=== PATIENT | female | born 1980 | race African-American/Black ===

== ENCOUNTER → 2017-06-30 11:30 | Observation (INO) ==
[2017-06-30 10:20] LABS: Bilirubin,Urine Negative (Negative); Blood,Urine Negative (Negative); Color,Urine Yellow (Yellow); Glucose,Urine (UA) Normal (Normal); Ketones,Urine Negative (Negative); Leukocyte Esterase,Urine Negative (Negative); Nitrite,Urine Negative (Negative); Protein,Urine Negative (Neg-Trace); Specific Gravity,Urine 1.018 (1.010-1.025); Urobilinogen,Urine Normal (Normal)
[2017-06-30 10:23] LABS: Clarity,Urine Clear (Clear)
--- NOTE | 2017-06-30 10:28 | OB/GYN Progress Note ---
Date of Encounter: 06/30/17 Time of Encounter: 10:24 - Assessment and Plan (1) 27 weeks gestation of Current Visit: Yes Status: Acute admitted for observation (2) Placenta previa antepartum in second trimester Current Visit: Yes Status: Acute no SVE (3) Nausea Current Visit: Yes Status: Acute Zofran ODT (4) with abdominal cramping of lower quadrant, antepartum Current Visit: Yes Status: Acute UA labor evaluation Subjective - Subjective Principal diagnosis: nausea, cramping, spotting Interval history: Patient is 37 y/o at 27w0d presents to labor and delivery with complaints of nausea that started yesterday along with cramping in lower abdomen. Patient reports when she wiped she also had bright red spotting but nothing since. Patient reports she called office yesterday with symptoms of yeast infection and requested a RX. Patient states she did not receive the RX yet. Patient denies dysuria or urinary frequency. Patient reports +FM. Patient reports is complicated by placenta previa. Patient is scheduled for repeat ultrasound in two days to check location. Antepartum ROS: movement normal, no loss of fluid Objective - Exam FHR: auscultation normal FHR comments: 140 bpm moderate variability appropriate for gestational age. Uterine irritability noted. Abdomen: Present: normal appearance, soft, gravid Cervical dilation: appears to be closed Comments: Speculum exam: NO bleeding noted. Moderate amount of thick white discharge. Cervix appears to be closed. Vaginosis panel collected.
[2017-06-30 10:40] LABS: Amphetamine Screen,Urine Negative ng/mL (Cutoff=1000); Barbiturate Screen,Urine Negative ng/mL (Cutoff=200); Benzodiazepines Screen,Urine Negative ng/mL (Cutoff=200); Cannabinoid Screen,Urine Negative ng/mL (Cutoff = 50); Cocaine Screen,Urine Negative ng/mL (Cutoff= 300); Opiate Screen,Urine Negative ng/mL (Cutoff=300); Phencyclidine Screen,Urine Negative ng/mL (Cutoff=25)
--- NOTE | 2017-06-30 11:16 | Event Note ---
Date of Encounter: 06/30/17 Time of Encounter: 11:10 Discussed contractions and exam of patient with Dr. Amato. Dr. Amato would like Terbutaline .25mg SQ x1 and then patient to be discharge to go to OB office for ultrasound to check location of placenta. Discussed POC with patient. Patient denies any questions or concerns.
[2017-06-30 11:23] LABS: Candida DNA Not Detected (Not Detect); Gardnerella DNA Not Detected (Not Detect); Trichomonas DNA Not Detected (Not Detect)
[~2017-06-30 11:30] MED LIST: Ondansetron ODT 4 MG TAB.RAPDIS SL ONE; Terbutaline 1 MG/ML VIAL SQ ONE
== END | disposition home or self-care (01) ==
LOC: 1NENULAB
PROVIDERS: ADMIT Obstetrics & Gynecology; ATTEND Obstetrics & Gynecology

== ENCOUNTER → 2017-06-30 13:44 | Observation (INO) ==
--- NOTE | 2017-06-30 13:29 | Discharge Summary ---
Date of Encounter: 06/30/17 Time of Encounter: 13:27 - Discharge Diagnosis (1) contractions Priority: Primary Status: Acute Comments: admitted for observation for contractions following terbutaline (2) 27 weeks gestation of Priority: Secondary Status: Acute Comments: observation - Discharge Medications Home Medications: Ibuprofen [Motrin] 800 mg PO Q8HR #30 tablet 10/25/15 [Rx] Ondansetron HCl [Zofran] 4 mg PO 2-3XD PRN #14 tablet 10/25/15 [Rx] Promethazine [Phenergan] 25 mg PO Q6HR PRN #12 tablet 11/01/15 [Rx] Iron 06/30/17 [History] One Tablet 06/30/17 [History] Allergies/Adverse Reactions: 3 Allergy/AdvReac Type Severity Reaction Status Date / Time nalbuphine [From Nubain] Allergy Confusion Verified 11/01/15 13:35 Penicillins Allergy Hives Verified 11/01/15 13:35 Date of admission: 06/30/17 12:07 Primary care physician: Jody Estrada Discharging clinician: Analy Butcher Anticipated date of discharge: 06/30/17 - Patient Status Disposition: Home, Self-Care Condition: Good Functional capacity at discharge: independent ambulation - Discharge Instructions Follow Up With: Jody Estrada MD [Primary Care Provider] - Joycelyn Amato MD [Partnered Physician] - - Diet and Activity Activity: increase activity as tolerated Diet: regular diet 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 Patient had an ultrasound in office to check placental location. Placenta was found to be low lying but no longer a previa. Patient scheduled to follow up if office with Dr. Amato on Wednesday. FHR 140 bpm moderate variability appropriate for gestational age. No contractions noted. Patient reports feeling no pain or contractions at this time. Patient is comfortable with POC. Time Attestation: Total time spent providing and/or coordinating discharge services: Time Spent: Less than 30 minutes Exam - Constitutional General appearance IM: A&O X 3, pleasant, answers questions appropriately - Respiratory Respiratory exam: Present: CTAB - Cardiovascular Cardiovascular exam IM: Present: RRR, +S1, +S2 - Extremities Exam Extremities exam IM: Present: full ROM, normal capillary refill - Neurological Exam Neurological exam: alert, oriented X3, reflexes normal - VTE Reasons for not Prescribing Prophylaxis: Treatment not Indicated - Low risk for VTE
== END | disposition home or self-care (01) ==
LOC: 1NENULAB
PROVIDERS: ADMIT Obstetrics & Gynecology; ATTEND Obstetrics & Gynecology

== ENCOUNTER → 2017-08-20 10:44 | Observation (INO) ==
[2017-08-20 09:50] LABS: Basophils % 0.2 %; Eosinophils # 0.2 K/mcL (0.0-0.6); Hematocrit 32.8 % (35.3-44.9); Hemoglobin 11.3 g/dL (11.5-15.4); Immature Granulocytes % 1.1 % (0-4); Lymphocytes # 1.3 K/mcL (0.6-4.6); Lymphocytes % 23.5 %; Mean Corpuscular HGB Conc 34.5 g/dL (31.6-35.5); Mean Corpuscular Hemoglobin 29.4 pg (28.0-33.3); Mean Corpuscular Volume 85.4 fL (83.0-100.0); Mean Platelet Volume 10.1 fL (9.4-12.4); Monocytes # 0.3 K/mcL (0.0-1.3); Monocytes % 5.7 %; Neutrophils # 3.7 K/mcL (1.6-8.9); Platelet Count 208 K/mcL (140-400); Red Blood Count 3.84 M/mcL (3.82-4.97); Red Cell Distribution Width 12.8 % (11.5-14.5); Segmented Neutrophils % 66.5 %
[2017-08-20 10:12] LABS: Amphetamine Screen,Urine Negative ng/mL (Cutoff=1000); Barbiturate Screen,Urine Negative ng/mL (Cutoff=200); Benzodiazepines Screen,Urine Negative ng/mL (Cutoff=200); Cannabinoid Screen,Urine Negative ng/mL (Cutoff = 50); Cocaine Screen,Urine Negative ng/mL (Cutoff= 300); Creatinine,Urine 57 mg/dL; Opiate Screen,Urine Negative ng/mL (Cutoff=300); Protein/Creatinine Ratio,Urine 0.19 mg/mg (0.00-0.20)
[2017-08-20 10:13] LABS: Alanine Aminotransferase 7 Units/L (7-52); Aspartate Amino Transferase 9 Units/L (13-39); BUN/Creatinine Ratio 16 (6-26); Blood Urea Nitrogen 7 mg/dL (6-20); Lactate Dehydrogenase 144 Units/L (140-271); Uric Acid 2.3 mg/dL (2.3-7.6); eGFR For African Americans > 60 (> 60); eGFR For Non-African Americans > 60 (> 60)
--- NOTE | 2017-08-20 10:36 | OB/GYN Progress Note ---
Date of Encounter: 08/20/17 Time of Encounter: 10:34 - Assessment and Plan (1) 34 weeks gestation of Current Visit: Yes Status: Acute (2) Elevated blood pressure affecting in third trimester, antepartum Current Visit: Yes Status: Acute BP normal. PIH labs normal including UPCR. Discharge home with strict return precautions. Follow-up with Dr. Amato for BP check next week. (3) Abnormal drug screen Current Visit: Yes Status: Acute Pt reports taking diclegis and benadryl with most recent use yesterday for allergy sx. She denies using PCP. I suspect that this was a false positive result. Subjective - Subjective Interval history: 37 year-old presenting to triage from office for PIH evaluation at 34 weeks. She reports intermittent BRYAN for the last week or so with some visual floaters but not blurry vision. She denies anything new today. Good FM. No LOF, vaginal bleeding, or contractions. Antepartum ROS: movement normal, no loss of fluid, no vaginal bleeding, no contractions Objective - Vital Signs Vital Signs: Intake and Output 08/19/17 08/20/17 08/20/17 23:59 07:59 15:59 Other: Weight 93.1 kg Patient Weight 08/20/17 23:59 Weight 93.1 kg - Exam FHR: category 1 FHR comments: 150 BPM, reactive NST Auscultation: bilateral: normal Abdomen: Present: soft, gravid Uterus: Absent: tenderness Comments: normal reflexes, no clonus - Labs Labs: Abnormal lab results Hgb 11.3 g/dL (11.5-15.4) L 08/20/17 08:57 Hct 32.8 % (35.3-44.9) L 08/20/17 08:57 Creatinine 0.43 mg/dL (0.60-1.20) L 08/20/17 08:57 Glucose 1 Hr 50 gm 190 mg/dL (70-139) H 08/20/17 09:32 AST 9 Units/L (13-39) L 08/20/17 08:57 Ur Phencyclidine Scrn Positive ng/mL (Cutoff=25) H 08/20/17 09:25
[2017-08-25 18:41] LABS: Phencyclidine Screen,Urine Negative ng/mL (Cutoff=25)
== END | disposition home or self-care (01) ==
LOC: 1NENULAB
PROVIDERS: ADMIT Obstetrics & Gynecology; ATTEND Obstetrics & Gynecology

== ENCOUNTER → 2017-09-07 11:14 | Observation (INO) ==
[2017-09-07 09:59] LABS: Basophils % 0.2 %; Eosinophils # 0.1 K/mcL (0.0-0.6); Eosinophils % 1.6 %; Hematocrit 33.9 % (35.3-44.9); Hemoglobin 11.5 g/dL (11.5-15.4); Immature Granulocytes % 1.4 % (0-4); Lymphocytes # 1.4 K/mcL (0.6-4.6); Lymphocytes % 25.1 %; Mean Corpuscular HGB Conc 33.9 g/dL (31.6-35.5); Mean Corpuscular Volume 85.6 fL (83.0-100.0); Monocytes # 0.5 K/mcL (0.0-1.3); Monocytes % 8.3 %; Neutrophils # 3.5 K/mcL (1.6-8.9); Platelet Count 212 K/mcL (140-400); Red Blood Count 3.96 M/mcL (3.82-4.97); Red Cell Distribution Width 13.1 % (11.5-14.5); Segmented Neutrophils % 63.4 %
[2017-09-07 10:15] LABS: Alanine Aminotransferase 8 Units/L (7-52); Aspartate Amino Transferase 12 Units/L (13-39); BUN/Creatinine Ratio 12 (6-26); Blood Urea Nitrogen 5 mg/dL (6-20); Lactate Dehydrogenase 157 Units/L (140-271); Uric Acid 2.6 mg/dL (2.3-7.6); eGFR For African Americans > 60 (> 60); eGFR For Non-African Americans > 60 (> 60)
[2017-09-07 10:23] LABS: Creatinine,Urine 74 mg/dL; Protein/Creatinine Ratio,Urine 0.16 mg/mg (0.00-0.20)
--- NOTE | 2017-09-07 10:25 | OB/GYN Progress Note ---
Date of Encounter: 09/07/17 Time of Encounter: 10:22 - Assessment and Plan (1) 36 weeks gestation of Current Visit: Yes Status: Acute admitted for observation (2) NST (non-stress test) reactive on surveillance Current Visit: Yes Status: Acute baseline 130 bpm moderate variability +15x15 accels no decels noted. (3) Elevated blood pressure affecting in third trimester, antepartum Current Visit: No Status: Acute BPs WNL PIH labs WNL Protein creat ration pending Subjective - Subjective Principal diagnosis: Elevated BP in Third trimester Interval history: Patient is a 37 y/o at 36w6d presents to labor and delivery from OB office due to elevated BP. Patient denies headache, visual disturbances or epigastric pain. Patient reports +FM, denies LOF or VB. Antepartum ROS: movement normal, no loss of fluid, no vaginal bleeding, no contractions Objective - Vital Signs Vital Signs: Intake and Output 09/06/17 09/07/17 09/07/17 23:59 07:59 15:59 Other: Weight 94.3 kg Patient Weight 09/07/17 23:59 Weight 94.3 kg - Exam FHR: auscultation normal, category 1 FHR comments: 130 bpm moderate variability +15x15 accels no decels noted. Irregular contractions noted. Cat. 1 tracing Auscultation: bilateral: normal Abdomen: Present: normal appearance, soft, gravid Uterus: Present: normal - Labs Labs: Abnormal lab results Hct 33.9 % (35.3-44.9) L 09/07/17 08:54 BUN 5 mg/dL (6-20) L 09/07/17 09:30 Creatinine 0.43 mg/dL (0.60-1.20) L 09/07/17 09:30 AST 12 Units/L (13-39) L 09/07/17 09:30
--- NOTE | 2017-09-07 10:33 | Discharge Summary ---
Date of Encounter: 09/07/17 Time of Encounter: 10:33 - Discharge Diagnosis (1) 36 weeks gestation of Priority: Primary Status: Acute Comments: admitted for observation (2) NST (non-stress test) reactive on surveillance Priority: Secondary Status: Acute (3) Elevated blood pressure affecting in third trimester, antepartum Priority: Secondary Status: Acute Comments: Discussed Labs and BPs with Dr. Amato Will start Aldomet 250mg po TID per her recommendation - Discharge Medications Prescriptions: Methyldopa [Aldomet] 250 mg PO TID #30 tablet Home Medications: Ondansetron HCl [Zofran] 4 mg PO 2-3XD PRN #14 tablet 10/25/15 [Rx] Promethazine [Phenergan] 25 mg PO Q6HR PRN #12 tablet 11/01/15 [Rx] Iron 06/30/17 [History] One Tablet 06/30/17 [History] Methyldopa [Aldomet] 250 mg PO TID #30 tablet 09/07/17 [Rx] Allergies/Adverse Reactions: 3 Allergy/AdvReac Type Severity Reaction Status Date / Time nalbuphine [From Nubain] Allergy Confusion Verified 11/01/15 13:35 Penicillins Allergy Hives Verified 11/01/15 13:35 Data Procedures and tests throughout hospitalization: Laboratory Tests 09/07/17 09/07/17 09/07/17 08:54 09:30 09:30 WBC 5.6 RBC 3.96 Hgb 11.5 Hct 33.9 L MCV 85.6 MCH 29.0 MCHC 33.9 RDW 13.1 Plt Count 212 MPV 10.0 Immature Gran % 1.4 Seg Neutrophils % 63.4 Lymphocytes % 25.1 Monocytes % 8.3 Eosinophils % 1.6 Basophils % 0.2 Neutrophils # 3.5 Lymphocytes # 1.4 Monocytes # 0.5 Eosinophils # 0.1 Basophils # 0.0 BUN 5 L Creatinine 0.43 L Est GFR ( Amer) > 60 Est GFR (Non-Af Amer) > 60 BUN/Creatinine Ratio 12 Uric Acid 2.6 AST 12 L ALT 8 Lactate Dehydrogenase 157 Urine Creatinine 74 Protein/Creatinin Ratio 0.16 Urine Total Protein 12 Ur Drug Screen Interp See Below Labs on day of discharge: Labs from last 24 hours 09/07/17 09/07/17 09/07/17 09:30 09:30 08:54 WBC 5.6 RBC 3.96 Hgb 11.5 Hct 33.9 L MCV 85.6 MCH 29.0 MCHC 33.9 RDW 13.1 Plt Count 212 MPV 10.0 Immature Gran % 1.4 Seg Neutrophils % 63.4 Lymphocytes % 25.1 Monocytes % 8.3 Eosinophils % 1.6 Basophils % 0.2 Neutrophils # 3.5 Lymphocytes # 1.4 Monocytes # 0.5 Eosinophils # 0.1 Basophils # 0.0 BUN 5 L Creatinine 0.43 L Est GFR ( Amer) > 60 Est GFR (Non-Af Amer) > 60 BUN/Creatinine Ratio 12 Uric Acid 2.6 AST 12 L ALT 8 Lactate Dehydrogenase 157 Urine Creatinine 74 Protein/Creatinin Ratio 0.16 Urine Total Protein 12 Ur Drug Screen Interp See Below Date of admission: 09/07/17 08:48 Primary care physician: Jody Estrada Discharging clinician: Analy Butcher Anticipated date of discharge: 09/07/17 - Patient Status Disposition: Home, Self-Care Condition: Good Functional capacity at discharge: independent ambulation - Discharge Instructions Follow Up With: Jody Estrada MD [Primary Care Provider] - Joycelyn Amato MD [Partnered Physician] - - Diet and Activity Activity: increase activity as tolerated Diet: regular diet 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
[2017-09-07 12:11] LABS: Amphetamine Screen,Urine Negative ng/mL (Cutoff=1000); Barbiturate Screen,Urine Negative ng/mL (Cutoff=200); Benzodiazepines Screen,Urine Negative ng/mL (Cutoff=200); Cannabinoid Screen,Urine Negative ng/mL (Cutoff = 50); Cocaine Screen,Urine Negative ng/mL (Cutoff= 300); Opiate Screen,Urine Negative ng/mL (Cutoff=300); Phencyclidine Screen,Urine Negative ng/mL (Cutoff=25)
== END | disposition home or self-care (01) ==
LOC: 1NENULAB
PROVIDERS: ADMIT Student in an Organized Health Care Education/Training Program; ATTEND Student in an Organized Health Care Education/Training Program

== ENCOUNTER → 2017-09-13 14:15 | Observation (INO) ==
[2017-09-13 13:26] LABS: Bilirubin,Urine Negative (Negative); Blood,Urine Negative (Negative); Clarity,Urine Cloudy (Clear); Color,Urine Yellow (Yellow); Glucose,Urine (UA) Normal (Normal); Ketones,Urine 15 mg/dL (Negative); Leukocyte Esterase,Urine Negative (Negative); Nitrite,Urine Negative (Negative); Protein,Urine Negative (Neg-Trace); Specific Gravity,Urine 1.008 (1.010-1.025); Urobilinogen,Urine Normal (Normal)
[2017-09-13 13:27] LABS: Hyaline Casts,Urine None Seen per lpf (None-Few); Squamous Epithelial Cell,Urine Many per lpf (None-Few); WBC,Urine 15-30 per hpf (0-3)
--- NOTE | 2017-09-13 14:07 | OB/GYN Progress Note ---
Date of Encounter: 09/13/17 Time of Encounter: 14:04 - Assessment and Plan (1) 37 weeks gestation of Current Visit: Yes Status: Acute Follow-up with Dr. Santos as already scheduled Labor precautions given Discharge home (2) Pain in symphysis pubis during Current Visit: Yes Status: Acute Referral for [facility] chiropractic made Advised to wear IT band during waking hours Subjective - Subjective Principal diagnosis: Symphysis Pubis Dysfunction Interval history: Ms. Moyer is a 37-year-old 003 at 37 weeks who presents with complaints of contractions she is feeling in her low back as well as pubic symphysis discomfort. She reports the contractions are about every 15 minutes and rates them at about 2 out of 10 on a pain scale. She reports it feels like her " pubic bone is going to crack in half." She endorses good movement and denies leakage of fluid and vaginal bleeding. Antepartum ROS: new complaints, movement normal, contractions, no loss of fluid, no vaginal bleeding Objective - Vital Signs Vital Signs: Intake and Output 09/12/17 09/13/17 09/13/17 23:59 07:59 15:59 Other: Weight 94.347 kg Patient Weight 09/13/17 23:59 Weight 94.347 kg - Exam FHR: category 1 FHR comments: Baseline 140 Moderate variability Accelerations present 15 x 15 No decelerations FHR category I Contractions every 10-15 minutes and palpate mild Auscultation: bilateral: normal Abdomen: Present: normal appearance, soft, gravid Uterus: Present: normal, firm Cervical dilation: 1 Cervix effacement: thick station: ballottable - Labs Labs: Abnormal lab results Urine Clarity Cloudy (Clear) A 09/13/17 13:12 Ur Specific [place] 1.008 (1.010-1.025) L 09/13/17 13:12 Urine Ketones 15 mg/dL (Negative) H 09/13/17 13:12
[2017-09-13 14:09] LABS: Bacteria,Urine Many per hpf (None-Few)
[2017-09-13 14:11] LABS: Renal Epithelial Cells,Urine Few per hpf (None-Few)
[2017-09-13 16:24] LABS: Amphetamine Screen,Urine Negative ng/mL (Cutoff=1000); Barbiturate Screen,Urine Negative ng/mL (Cutoff=200); Benzodiazepines Screen,Urine Negative ng/mL (Cutoff=200); Cannabinoid Screen,Urine Negative ng/mL (Cutoff = 50); Cocaine Screen,Urine Negative ng/mL (Cutoff= 300); Opiate Screen,Urine Negative ng/mL (Cutoff=300); Phencyclidine Screen,Urine Negative ng/mL (Cutoff=25)
== END | disposition home or self-care (01) ==
LOC: 1NENULAB
PROVIDERS: ADMIT Obstetrics & Gynecology; ATTEND Obstetrics & Gynecology

== ENCOUNTER 2018-01-31 09:22 | Observation (INO) ==
--- NOTE | 2018-01-31 09:36 | Anesthesia Evaluation PreOp ---
Date of Encounter: 01/31/18 Time of Encounter: 09:33 - Past History Planned Operation: Lap. 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: Denies Any Significant HX Other Medical History: Denies Any Significant HX Anesthesia History: No Prior Anesthetic Complications, Past Anesthesia (none) : No Test: Negative (01/24/2018) Alcohol Use: none Drug use: none Medications and Allergies One Tablet 0.8 mg PO DAILY 06/30/17 [History] Methyldopa [Aldomet] 250 mg PO TID #30 tablet 09/07/17 [Rx] Folic Acid 4 mg PO DAILY 09/22/17 [History] Ibuprofen [Motrin] 600 mg PO Q6HR PRN #40 tablet 09/23/17 [Rx] Allergy/AdvReac Type Severity Reaction Status Date / Time nalbuphine [From Nubain] Allergy Confusion Verified 01/24/18 13:38 Penicillins Allergy Hives Verified 01/24/18 13:38 - Meds/Allergy Pre-op Review Medications Reviewed: Yes Allergies Reviewed: Yes Beta Blockers on Current Med List: No Anesthesia Results - Labs Laboratory Tests 10/25/15 09/21/17 01/24/18 11:55 23:46 14:00 WBC 5.3 Hgb 14.2 Hct 42.2 Plt Count 272 Sodium 135 L Potassium 3.4 L Chloride 103 Carbon Dioxide 21 BUN 8 Creatinine Serum , Qual 01/24/18 01/24/18 14:00 14:00 WBC Hgb Hct Plt Count Sodium Potassium Chloride Carbon Dioxide BUN Creatinine 0.79 Serum , Qual Negative Anesthesia Exam O2 Sat Height 1.73 m Height 1.73 m Weight 82.554 kg Weight 82.554 kg O2 Sat by Pulse Oximetry 97 Vital Signs Temp Pulse Resp BP Pulse Ox 98.4 F 91 18 156/100 97 01/31/18 09:36 01/31/18 09:36 01/31/18 09:36 01/31/18 09:36 01/31/18 09:36 NPO (# of Hours): > 8 hrs Pain Scale: 0 Pain Scale Used: Numeric (1 - 10) - HEENT Pupil (Motor): Pupils equal, EOMI Mallampati: I Teeth: Normal Oral Opening: Greater than 3 - MANUFACTURING RECRUITER LOC: Oriented MANUFACTURING RECRUITER Motor: Normal RUE, Normal LUE, Normal RLE, Normal LLE, Normal Face MANUFACTURING RECRUITER Sensory: Normal: RUE, LUE, RLE, LLE, Face - Cardiac Rhythm: Regular Murmur: None JVD: No Carotid Bruit: No - Pulmonary Breath Sounds: bilateral Clear Respiratory Effort: Symmetrical Anesthesia Assess/Plan ASA Score: 2 Level of consciousness: Cooperative Anesthetic Plan: General Autologous Blood: Yes Monitoring Plan: Standard Monitors Recovery Plan: PACU
[2018-01-31] MEDS ORDERED: Levofloxacin 500 MG/100 ML 500 MG/100 ML BAG IVPB ONE (09:43)
[2018-01-31] MEDS ORDERED: *HR* Belladonna Alkaloids/Opium 30 MG RECTAL SUPPOSITORY RC ONE ×2 (09:44→10:16)
[2018-01-31] MEDS ORDERED: *HR* FentaNYL (PF) 100 MCG/2 ML VIAL ONE ×2 (09:44→11:01)
[2018-01-31] MEDS ORDERED: Ketorolac 30 MG/ML VIAL IVP ONE (09:44)
[2018-01-31] MEDS ORDERED: Ringers Solution, Lactated 1,000 ML IVC SCH (09:45)
[2018-01-31] MEDS ORDERED: *HR* Propofol 200 MG/20 ML VIAL IVP ONE ×2 (09:45→10:41)
[2018-01-31] MEDS ORDERED: *HR* Midazolam HCl 2 MG/2 ML VIAL ONE (09:45)
[2018-01-31] MEDS ORDERED: *HR* OxyCODONE Immed Rel 5 MG TABLET PO PRN ×2 (09:53→16:33)
[2018-01-31] MEDS ORDERED: *HR* HYDROmorphone (PF) 1 MG/ML SYRINGE IVP PRN (09:53)
[2018-01-31] MEDS ORDERED: Acetaminophen IV 1,000 MG/100 ML INFUS..BTL ONE (10:13)
[2018-01-31] MEDS ORDERED: *HR* HYDROmorphone 2 MG/ML SYRINGE ONE (10:15)
[2018-01-31] MEDS ORDERED: Bupivacaine/EPI 1:200k 0.5%PF 10 ML VIAL ONE (10:16)
--- NOTE | 2018-01-31 10:31 | History & Physical Report ---
Date of Encounter: 01/31/18 Time of Encounter: 10:29 24 Hour HP Update - Instructions Instructions: If the History and Physical is less than 30 days old and was completed prior to A.M. admission and or procedure and has NOT been updated on calendar day of procedure please complete this update prior to performing procedure. - Update Patient reports changes in Medical Condition: No Changes in examination, assessment, or condition: No Changes in Medication: No Preop tests/diagnostics Reviewed: Yes Surgery Remains Indicated: Yes Consent for Planned Operative Procedure(s) Verified: Yes Review of Patient reveals the following changes:: Patient requests removal of full length of fallopian tubes bilaterally. Consent updated to reflect changes. Risks and benefits reviewed - Pre-Operative Checklist Preoperative Checklist Indicated: Yes Prophylactic Antibiotic Ordered: Yes Home Medications Include Beta Jazmin: No Is VTE Prophylaxis Indicated?: Yes
--- NOTE | 2018-01-31 11:09 | Discharge Summary ---
Outpatient Proc Discharge Plan - Plan Additional Instructions: No driving for 48 hours or while taking narcotic pain medication. Pelvic rest including no intercourse. Follow-up in 2 weeks for postop check. Keep incisions dry. Call for any fevers 105 or greater, redness or drainage from incisions or pain not controlled by pain medication. Prescriptions: OxyCODONE/APAP 5/325 [Percocet 5/325 MG] 1 each PO Q6HR PRN 7 Days #20 tablet PRN Reason: Pain Ibuprofen 800 mg PO Q8HR PRN #20 tablet PRN Reason: Pain Home Medications: Ibuprofen 800 mg PO Q8HR PRN #20 tablet 01/31/18 [Rx] Ibuprofen [Ibu-200] 200 mg PO DAILY PRN 01/31/18 [History] OxyCODONE/APAP 5/325 [Percocet 5/325 MG] 1 each PO Q6HR PRN 7 Days #20 tablet 01/31/18 [Rx]
[2018-01-31] MEDS ORDERED: Neostigmine Methylsulfate 3 MG/3 ML SYRINGE ONE (11:11)
[2018-01-31] MEDS ORDERED: Ketorolac 30 MG/ML VIAL ONE (11:11)
[2018-01-31] MEDS ORDERED: Ondansetron 4 MG/2 ML VIAL ONE (11:12)
[2018-01-31] MEDS ORDERED: Lidocaine -MPF 2% 2 ML VIAL ONE (11:12)
[2018-01-31] MEDS ORDERED: *HR* Rocuronium Bromide 50 MG/5 ML VIAL ONE (11:12)
[2018-01-31] MEDS ORDERED: Lidocaine -MPF 4% 5 ML AMPUL ONE (11:12)
[2018-01-31] MEDS ORDERED: Dexamethasone 4 MG/ML VIAL ONE (11:12)
--- NOTE | 2018-01-31 11:37 | OB/GYN Procedure Note ---
Laparoscopy Procedure - Diagnosis Date of procedure: 01/31/18 Pre-op diagnosis: other (Undesired fertility requesting permanent sterilization with bilateral salpingectomy) Post-op diagnosis: same - Procedure Laparoscopy procedure: operative laparoscopy, other (bilateral salpingectomy) Surgeon: Joycelyn Amato Was there an audiology assistant present: Yes Medical Physics Professor: Josseline Eason Anesthesia provider: Patrick [place] [place]hesia Type: General Estimated blood loss (cc): 10 Complications: none Specimens: right fallopian tube, left fallopian tube Findings: An enlarged, retroflexed, boggy uterus. Normal-appearing tubes and ovaries bilaterally. Normal-appearing appendix and upper abdomen Disposition: PACU Narrative: The patient was taken to the operating room and given general anesthesia adequate for abdominal and pelvic surgery. She was prepped and draped in the usual sterile fashion. The timeout was completed. A speculum was placed in the vaginal vault and the cervix was grasped with a single-tooth tenaculum and a Kwong cannula was placed. Gloves were changed. The subumbilical incision site was elevated with Allis clamps, injected with 0.5% Marcaine with epinephrine and an incision was made with a scalpel. A 5 mm bladeless trocar was then inserted with direct visualization into the abdominal cavity. Abdomen was insufflated with CO2. Pelvis was identified and visually inspected. A right lateral trocar site was transilluminated and injected with 0.5% Marcaine. An incision was made with a scalpel and the bladeless 5 mm trocar was inserted with direct visualization. Evaluation of the pelvis was made. A suprapubic trocar site was transilluminated, injected with local and incision made. An 8 mm bladeless trocar was inserted with direct visualization. Photos were taken. Left mesosalpinx and fallopian tube were ligated with the LigaSure. Good hemostasis was achieved. This was repeated for the right side. The specimens including both fallopian tubes were removed through the suprapubic trocar site. The suprapubic trocar site was inspected and was hemostatic. The pelvis was inspected and hemostasis was observed. The lateral trocar site was observed to be hemostatic once removed. The abdomen was deflated All skin incisions were closed with Dermabond, Mastisol and Steri-Strips. Hemostasis noted. Estimated blood loss 10 mL's. Complications none. Patient was given a B&O suppository, extubated and taken to recovery room in stable condition
[2018-01-31] MEDS: *HR* Labetalol 20 MG/4 ML SYRINGE IVP PRN ×2 (11:45→11:50)
[2018-01-31] MEDS ORDERED: *HR* OxyCODONE/APAP 5/325 TABLET PO ONE (11:46)
[2018-01-31] MEDS ORDERED: *HR* Labetalol 20 MG/4 ML SYRINGE IVP ONE (13:18)
--- NOTE | 2018-01-31 16:03 | Anesthesia Evaluation Post Op ---
Date of Encounter: 01/31/18 Time of Encounter: 15:55 - Vital Signs Vital Signs: Vital Signs/O2 Sat, Most Current Temp Pulse Resp BP Pulse Ox 97.6 F 77 16 175/114 98 01/31/18 12:22 01/31/18 14:14 01/31/18 14:14 01/31/18 14:35 01/31/18 14:14 - Lungs Lungs: Clear Ascult./Percussion - Airway Airway: Non-obstructed - Cardiovascular Regular Rate - Mental Status Mental Status: Alert & Oriented, Answers Appropriately - Pain Pain Scale: 0 Pain Scale used: Numeric (1 - 10) - Nausea Vomiting Nausea Vomiting: Not Present - Hydration Hydration: Tolerates oral liquids, Able to void - Discharge PostOp Status: Transfer Patient to floor (Patient is remaines hypertensive despite Treatment with labetalol, Hydralazine and enalapril. BP 160-175/108-116. [address] Dr. Leong and it was decided to admit patient for further observation and treatment. Dr. Larios also notified. Hospitalist, Dr. Hopson will admit patient.)
[2018-01-31] MEDS ORDERED: Naloxone 0.4 MG/ML INJ IVP PRN (16:33)
[2018-01-31] MEDS ORDERED: *HR* HYDROcodone/Acet 5/325 mg TABLET PO PRN (16:33)
[2018-01-31] MEDS ORDERED: *HR* Labetalol 20 MG/4 ML SYRINGE IVP PRN (16:34)
--- NOTE | 2018-01-31 16:48 | Internal Med History&Physical ---
Date of Encounter: 01/31/18 Time of Encounter: 17:00 Internal Medicine - H&P: HPI Chief complaint: HTN Admitted From: Direct Admit History of present illness: Ms. Moyer is a 37 year old female with no significant past medical history is admitted after bilateral salpingectomy for hypertensive urgency. Other than mild R frontal headache, denies any chest pain, shortness of breath, palpitation, blurring of vision, or focal weakness/numbness. Complains of mild discomfort where trocars were inserted but otherwise no N/V or chills. Patient is not aware of any family history of endocrinopathy. At the PACU, she was hypertensive as high as 178/111 and was given IV hydralazine 10 mg, IV Vasotec 1.25 mg, and IV labetalol 10 mg which did bring down the BP to 165/102. She is transferred to the medical floor for further mx. Past Med Surg Social Fam HX - Past Medical History Medical history: non-contributory, thyroid disease Additional medical history: patient denies Psychiatric history: no psych history - Past Surgical History Additional surgical history: bilateral salpingectomy - Social History Smoking Status: Never smoker Smokeless Tobacco Status: No Alcohol use: occasionally Drug use: none - Family History Brother Living Status: Still Living Hx Family Cardiac Disorders: No Hx Family Respiratory Disorders: No Hx Family Cancer: No Hx Family GI Disorders: No Hx Family Endocrine Disorder: No Hx Family Neuromuscular Disorders: Yes (spinda bifida) Hx Family Neurologic Disorders: No Hx Family HEENT Disorders: No Hx Family Autoimmune Disorders: No Mother Hx Family Cardiac Disorders: Yes (HTN) Internal Medicine - H&P: Meds Ibuprofen [Ibu-200] 200 mg PO DAILY PRN 01/31/18 [History] RX: Ibuprofen 800 mg PO Q8HR PRN #20 tablet 01/31/18 [Rx] RX: OxyCODONE/APAP 5/325 [Percocet 5/325 MG] 1 each PO Q6HR PRN 7 Days #20 tablet 01/31/18 [Rx] Allergy/AdvReac Type Severity Reaction Status Date / Time nalbuphine [From Nubain] Allergy Confusion Verified 01/31/18 10:09 Penicillins Allergy See Verified 01/31/18 10:09 Comments All Systems PM: A 10-system review of systems was performed and is negative for pertinent findings except as documented above in the HPI. - Constitutional Vitals: Temp Pulse Resp BP Pulse Ox 97.6 F 121 18 165/102 99 01/31/18 12:22 01/31/18 16:15 01/31/18 16:15 01/31/18 16:15 01/31/18 16:15 Exam: General: Alert and oriented, not in acute distress. HEENT:EOMI, pupils equal, round and reactive. Cardiovascular:Normal S1 & S2, No JVD. Pulse regular, normal rate Lungs: clear to auscultation, no wheezes/rales Abdomen:Soft, non-tender, no rigidity. dressing appears dry and clean Extremities:No deformity or swelling Neurological: CN II-XII intact, power and sensation fully intact in all 4 limbs. No cerebellar signs, pronator drift -ve, Babinski downgoing bilaterally Skin:Normal color, no rash, no lesions. Pulses:Carotid and radial pulses normal +2. Rest of the physical exam is non contributory - Assessment and plan (1) Hypertensive urgency Current Visit: Yes Status: Acute Assessment and plan: developed HTN post-operatively associated with mild headache refractory to IV Vasotec, hydralazine, labetalol ?underlying pheo Not complaining of significant pain at the trocar insertion site manual BP at bedside was 158/100 will give 1 dose of PO clonidine 0.1 mg Continue when necessary IV labetalol and IV hydralazine overnight May benefit from outpatient workup for pheochromocytoma (2) Status post bilateral salpingectomy Current Visit: Yes Status: Acute Assessment and plan: uneventful op, dressing appears dry and clean with benign abdominal exam - Time Spent With Patient Total time spent is greater than 50% in coordination of care (as documented) at patient's floor/unit and/or counseling patient:
[2018-01-31] MEDS ORDERED: cloNIDine HCl 0.1 MG TABLET PO ONE (17:05)
[2018-01-31] MEDS: Acetaminophen 325 MG TABLET PO PRN (19:48)
[2018-01-31] MEDS: *HR* Promethazine 25 MG/ML VIAL IVP PRN (19:57)
[2018-02-01] MEDS: Acetaminophen 325 MG TABLET PO PRN (03:24)
[2018-02-01 04:47] LABS: Basophils % 0.1 %; Hemoglobin 13.7 g/dL (11.5-15.4); Immature Granulocytes % 0.2 % (0-4); Lymphocytes # 1.4 K/mcL (0.6-4.6); Lymphocytes % 15.3 %; Mean Corpuscular HGB Conc 32.6 g/dL (31.6-35.5); Mean Corpuscular Hemoglobin 27.6 pg (28.0-33.3); Mean Corpuscular Volume 84.5 fL (83.0-100.0); Mean Platelet Volume 9.9 fL (9.4-12.4); Monocytes # 0.4 K/mcL (0.0-1.3); Monocytes % 4.2 %; Neutrophils # 7.4 K/mcL (1.6-8.9); Platelet Count 292 K/mcL (140-400); Red Blood Count 4.97 M/mcL (3.82-4.97); Red Cell Distribution Width 14.1 % (11.5-14.5); Segmented Neutrophils % 80.2 %
[2018-02-01 05:04] LABS: BUN/Creatinine Ratio 19 (6-26); Blood Urea Nitrogen 11 mg/dL (6-20); Calcium 9.6 mg/dL (8.6-10.3); Carbon Dioxide 24 mEq/L (23-29); Chloride 107 mEq/L (98-107); Glucose 141 mg/dL (70-105); Osmolality,Calculated 288 (280-300); Potassium 3.8 mEq/L (3.5-5.1); Sodium 138 mEq/L (136-145); eGFR For Non-African Americans > 60 (> 60)
[2018-02-01] MEDS: *HR* Promethazine 25 MG/ML VIAL IVP PRN (05:16)
[2018-02-01 07:05] VITALS: BP 161/84
[2018-02-01] MEDS ORDERED: amLODIPine 5 MG TABLET PO SCH (09:00)
--- NOTE | 2018-02-01 09:24 | Discharge Summary ---
- NOTES TO OUTPATIENT PROVIDER Notes to Outpatient Provider: Follow up with PCP in one week. Follow with [facility] / [facility] [place] Dr. Amato 2 weeks. Please start taking Labetalol 50mg PO BID for your blood pressure Orders not resulted at time of discharge: Pending orders 01/31/18 11:32 Surgical Pathology [PTH] Routine Date of Encounter: 02/01/18 Time of Encounter: 09:17 - Discharge Diagnosis (1) Hypertensive urgency Priority: Primary Status: Acute (2) Status post bilateral salpingectomy Priority: Secondary Status: Acute Hospital course: Ms. Moyer is a 37 year old female who had borderline gestational HTN now 4 months post pt admitted after bilateral salpingectomy for hypertensive urgency. At the PACU after surgery she was hypertensive as high as 178/111 and was given IV hydralazine 10 mg, IV Vasotec 1.25 mg, and IV labetalol 10 mg which did bring down the BP to 165/102. Pt was admitted in the hospital and placed her on monitor. She was given IV labetalol as needed and her blood pressure was in 130s. At this point I recommended patient to continue taking labetalol 50 mg PO b.i.d. She denied any head ache, visual changes. - Time Spent with Patient Total time spent providing and/or coordinating discharge services: - Discharge Medications Prescriptions: Labetalol [Trandate] 50 mg PO BID #15 tablet Home Medications: Ibuprofen 800 mg PO Q8HR PRN #20 tablet 01/31/18 [Rx] Ibuprofen [Ibu-200] 200 mg PO DAILY PRN 01/31/18 [History] OxyCODONE/APAP 5/325 [Percocet 5/325 MG] 1 each PO Q6HR PRN 7 Days #20 tablet 01/31/18 [Rx] Labetalol [Trandate] 50 mg PO BID #15 tablet 02/01/18 [Rx] Allergies/Adverse Reactions: Allergy/AdvReac Type Severity Reaction Status Date / Time nalbuphine [From Nubain] Allergy Confusion Verified 01/31/18 10:09 Penicillins Allergy See Verified 01/31/18 10:09 Comments Date of admission: 01/31/18 16:35 Primary care physician: Jody Estrada - Constitutional Vitals: Temp Pulse Resp BP Pulse Ox 98.2 F 101 16 161/84 99 02/01/18 07:04 02/01/18 07:04 02/01/18 07:04 02/01/18 07:04 02/01/18 07:04 General appearance: Present: cooperative, A&O X 3, answers questions appropriately Exam: Gen: Alert, awake, Oriented to time,place and person Chest: Diminished breath sounds B/L, No wheezing, No crackles, No rales Heart: S1S2+ RRR No murmurs Abd: Soft, NT, BS +, No organomegaly Ext: No edema, pulses are palpable, No calf tenderness Neuro : Benign findings Skin: No rash. - Patient Status Disposition: Home, Self-Care Condition: Good Overall status at discharge: patient is back to baseline - Discharge Instructions Instructions: Labetalol (By mouth), DASH Eating Plan (DC) Follow Up With: Jody Estrada MD [Primary Care Provider] - (Patient will make appointment for follow up.) Joycelyn Amato MD [Partnered Physician] - 02/14/18 8:00 am Additional Instructions: Home Medication List * You have been given a list of your current medications. If you have changes in your medications, update your list. * Provide a list of current medications to your primary care physician. * Carry a copy of your current medications with you in case of an emergency.Follow Up Appointment-February at 8:00am No driving for 48 hours or while taking narcotic pain medication. Pelvic rest including no intercourse. Follow-up in 2 weeks for postop check. Keep incisions dry. Call for any fevers 105 or greater, redness or drainage from incisions or pain not controlled by pain medication. - Diet and Activity Activity: increase activity as tolerated Diet: low salt diet
== END 2018-02-01 09:34 | disposition home or self-care (01) ==
LOC: SUATTDRO → SAMDAY 09:22 → 3BNU 09:22
PROVIDERS: ADMIT Internal Medicine; ATTEND Internal Medicine